=== PATIENT | female | born 1940 | race Caucasian/White ===

== ENCOUNTER → 2022-08-02 15:31 | Outpatient (REF) | payer MEDICARE, OTHER, SELFPAY | LOC: HO.CARD 15:31 | PROVIDERS: PCP Internal Medicine; Visit Provider Internal Medicine | DX: I35.0 Nonrheumatic aortic (valve) stenosis (principal) | CPT/HCPCS: 93306 ==

== ENCOUNTER 2024-07-07 11:52 | Outpatient (REF) | payer SELFPAY ==
[2024-07-07 12:55] LABS: Anion Gap 14 (12-20); Blood Urea Nitrogen 10 mg/dL (9-16); Calcium 8.7 mg/dL (8.4-10.2); Carbon Dioxide 21 mmol/L (22-29); Chloride 95 mmol/L (96-108); Estimated Glomerular Filt Rate > 60; Glucose Random 92 mg/dL (60-115); Potassium 3.7 mmol/L (3.3-5.1); Sodium 126 mmol/L (135-145)
== END 2024-07-07 11:53 | disposition home or self-care (01) ==
LOC: HO.MMNH1L 11:52
PROVIDERS: Visit Provider Hospitalist
DX: I50.30 Unspecified diastolic (congestive) heart failure (principal); E87.1 Hypo-osmolality and hyponatremia
CPT/HCPCS: 36415; 80048

== ENCOUNTER 2024-07-12 06:19 | Outpatient (REF) | payer SELFPAY ==
[2024-07-12 06:10] LABS: MANUAL DIFF FLAG NO
[2024-07-12 06:58] LABS: Basophils Absolute Auto 0.1 X10*3/uL (0.0-0.2); Basophils Percent Auto 0.7 % (0-2); Eosinophils Absolute Auto 0.1 X10*3/uL (0.0-0.4); Eosinophils Percent Auto 1.8 % (0-4); Hematocrit 35.6 % (37.0-47.0); Hemoglobin 11.9 g/dl (12.0-16.0); Imm Gran Abs Auto 0.03 X10*3/uL (0.00-0.03); Imm Gran Pct Auto 0.4 % (0.0-0.4); Lymphocytes Absolute Auto 1.7 X10*3/uL (1.2-4.9); Lymphocytes Percent Auto 24.5 % (20-40); Mean Corpuscular HGB Conc 33.4 g/dl (31.0-35.0); Mean Corpuscular Hemoglobin 29.5 pg (27.0-33.0); Mean Corpuscular Volume 88.3 fL (80.0-98.0); Mean Platelet Volume 10.2 fL (9.4-12.3); Monocytes Absolute Auto 0.8 X10*3/uL (0.1-1.2); Monocytes Percent Auto 11.2 % (2-11); Neutrophils Absolute Auto 4.2 x10*3/uL (2.0-8.3); Neutrophils Percent Auto 61.4 % (45-73); Platelet Count 272 X10*3/uL (160-400); Red Blood Count 4.03 X10*6/uL (4.20-5.50); Red Cell Distribution Width 13.5 % (11.0-16.0); White Blood Count 6.8 X10*3/uL (4.8-10.8)
[2024-07-12 07:25] LABS: Anion Gap 14 (12-20); Blood Urea Nitrogen 7 mg/dL (9-16); Calcium 8.7 mg/dL (8.4-10.2); Carbon Dioxide 24 mmol/L (22-29); Chloride 104 mmol/L (96-108); Estimated Glomerular Filt Rate > 60; Glucose Random 77 mg/dL (60-115); Potassium 3.6 mmol/L (3.3-5.1); Sodium 138 mmol/L (135-145)
== END 2024-07-12 06:20 | disposition home or self-care (01) ==
LOC: HO.MMNH1L 06:19
PROVIDERS: Visit Provider Family Medicine
DX: I10 Essential (primary) hypertension (principal)
CPT/HCPCS: 36415; 80048; 85025

== ENCOUNTER 2024-07-16 16:19 | Emergency (ER) | payer MEDICARE, OTHER, SELFPAY ==
--- NOTE | ~2024-07-16 | XR_ITS ---
EXAMINATION: XR PELVIS CLINICAL INFORMATION: Fall COMPARISON: None available. TECHNIQUE: AP view of the pelvis. FINDINGS: Generalized demineralization/osteopenia limits bony detail. Bowel obscures some of the pelvic osseous structures. There is no definite disruption of the SI joints, hips or symphysis. No definite acute pelvic fracture. There are some degenerative changes. No large pelvic mass or collection. There are vascular calcifications. XR/XR pelvis 1-2V IMPRESSION: Limited detail. No convincing acute fracture or subluxation. If patient symptoms persist and remain undiagnosed repeat or additional studies may be indicated Electronically signed by: Carloz Christianson MD 07/16/2024 05:50 PM EDT
--- NOTE | ~2024-07-16 | CT_ITS ---
EXAMINATION: CT HEAD WITHOUT CONTRAST CLINICAL INFORMATION: Fall COMPARISON: None. TECHNIQUE: Multidetector CT examination of the head is performed without contrast. This CT examination was performed using dose optimization techniques as appropriate, variously including the following: *Automated exposure control *Adjustment of mA and/or kV according to patient size (this includes techniques or standardized protocols for targeted exams where dose is matched to indication/reason for exam; i.e. extremities or head) *Use of iterative reconstruction technique DLP: 793 mGy-cm FINDINGS: There is no evidence of a recent intracranial hemorrhage or extra-axial collection. The midline structures are nondisplaced. Fairly marked proportional prominence of the ventricles, cisterns and sulci There is no evidence of an intra-axial mass. There are no suspicious focal areas of abnormal brain attenuation. The jacques-white interface is within normal limits. There is no evidence of acute territorial infarct. Severe nonspecific white matter low attenuation with a focal chronic appearing lacunae adjacent to the body of the right lateral ventricle. No fracture demonstrated CT/CT head/brain wo IV con IMPRESSION: 1. There is no evidence of a recent intracranial hemorrhage. 2. No acute infarct. 3. 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
[2024-07-16 16:31] VITALS: BP 133/66; PULSE 84; RESP 16; TEMP 36.9; O2SAT 96; BMI 26.6
--- NOTE | 2024-07-16 16:49 | ECG_ITS ---
Test Reason : FALL Blood Pressure : / mmHG Vent. Rate : 120 BPM Atrial Rate : 000 BPM P-R Int : 000 ms QRS Dur : 086 ms QT Int : 358 ms P-R-T Axes : 000 -17 043 degrees QTc Int : 505 ms Atrial fibrillation with rapid ventricular response Inferior infarct , age undetermined Cannot rule out Anterior infarct , age undetermined Abnormal ECG No previous ECGs available Referred By: Jesús Chahal Electronically Signed By:HARJIT ESPARZA
[2024-07-16 17:43] LABS: MANUAL DIFF FLAG NO
[2024-07-16 17:46] LABS: Basophils Percent Auto 0.5 % (0-2); Eosinophils Percent Auto 0.4 % (0-4); Hematocrit 37.3 % (37.0-47.0); Hemoglobin 12.9 g/dl (12.0-16.0); Imm Gran Abs Auto 0.04 X10*3/uL (0.00-0.03); Imm Gran Pct Auto 0.5 % (0.0-0.4); Lymphocytes Percent Auto 13.4 % (20-40); Mean Corpuscular HGB Conc 34.6 g/dl (31.0-35.0); Mean Corpuscular Hemoglobin 29.9 pg (27.0-33.0); Mean Corpuscular Volume 86.5 fL (80.0-98.0); Mean Platelet Volume 9.6 fL (9.4-12.3); Monocytes Absolute Auto 0.7 X10*3/uL (0.1-1.2); Monocytes Percent Auto 8.7 % (2-11); Neutrophils Absolute Auto 5.9 x10*3/uL (2.0-8.3); Neutrophils Percent Auto 76.5 % (45-73); Platelet Count 257 X10*3/uL (160-400); Red Blood Count 4.31 X10*6/uL (4.20-5.50); Red Cell Distribution Width 13.2 % (11.0-16.0); White Blood Count 7.7 X10*3/uL (4.8-10.8)
[2024-07-16 18:01] LABS: Alanine Aminotransferase 8 U/L (0-31); Albumin Level 3.8 g/dL (3.5-5.0); Alkaline Phosphatase 139 U/L (39-117); Anion Gap 13 (12-20); Aspartate Amino Transferase 12 U/L (5-31); Bilirubin Total 0.9 mg/dL (0.0-1.0); Blood Urea Nitrogen 9 mg/dL (9-16); Calcium 9.3 mg/dL (8.4-10.2); Carbon Dioxide 23 mmol/L (22-29); Chloride 101 mmol/L (96-108); Creatinine Clr Calc Pharmacy 49.7; Estimated Glomerular Filt Rate > 60; Glucose Random 100 mg/dL (60-115); Lipase 17 U/L (8-78); Potassium 4.1 mmol/L (3.3-5.1); Sodium 133 mmol/L (135-145); Total Protein 6.7 g/dL (6.5-8.0)
--- NOTE | 2024-07-16 18:22 | PC.NURSE ---
patient continues to rest quietly in room w/ pure wick in place. hx stroke with left sided deficits, states that she can ambulate w/ one assist and walker at baseline however has been utilizing a wheelchair while at [facility]. patient states she adamantly does not like [facility] and discharged herself a bit too early . plan for PT/CM.
--- NOTE | 2024-07-16 18:32 | MHC.EDTECH ---
Patient given dinner
--- NOTE | 2024-07-16 18:40 | PC.NURSE ---
patient's hr found to be elevated 120-140's. IV established. after cardizem pt hr between 80's-90's.
[2024-07-16 18:44] VITALS: BP 137/67; PULSE 134; RESP 18; O2SAT 98
[2024-07-16 18:47] VITALS: BP 137/67; PULSE 147
[2024-07-16] MEDS: dilTIAZem HCL 50 MG/10 ML VIAL 20 MG IVPUSH (18:47)
--- NOTE | 2024-07-16 19:23 | PC.NURSE ---
Assumed care pf pt at 1900. PT alert and oriented and in no acute distress. PT finished dinner tray and is resting quietly at this time. VSS. urine sample collected and sent to lab. PT requested and provided warm blanket. Plan of care ongoing.
[2024-07-16 19:32] VITALS: BP 120/59; PULSE 79; RESP 19; TEMP 36.8; O2SAT 100
[2024-07-16 19:37] LABS: Appearance Urine Clear; Color Urine Yellow; Glucose Urine UA Negative (Negative); Leukocyte Esterase Urine Trace (Negative); Nitrite Urine Negative (Negative); Specific Gravity - Urine <= 1.005 (1.005-1.025); UMIC TRIGGER UACC YES; Urine Blood Negative (Negative); Urine Ketones Trace mg/dL (Negative); Urine Protein Negative (Neg-Trace)
--- NOTE | 2024-07-16 19:42 | ED.GENADULT ---
HPI - General Adult General Chief complaint: Fall Stated complaint: Fell out of wheelchair, on tinners Time Seen by Provider: 07/16/24 16:25 Source: patient, RN notes reviewed and old records reviewed Mode of arrival: EMS Limitations: no limitations History of Present Illness ED Provider: Tirso HPI narrative: 84-year-old female with past medical history significant for paroxysmal atrial fibrillation maintained on Eliquis, previous CVA maintained on clopidogrel, hypertension, hyperlipidemia presents for evaluation after a fall. Patient reports that she was at [facility] and discharged earlier today. She states that she did not like it there and was pushing to be released early. The patient feels as though she may have left rehab too early as she still endorses feeling weak. She was at a local hotel because her house is being treated for asbestos Patient states that while trying to transfer from the wheelchair she slid onto her buttocks. She was unable to get up without assistance She denies hitting her head or losing consciousness She has mild pain in my buttocks. ? No other complaints or concerns at this time Related Data Home Medications ?Medication ?Instructions ?Recorded ?Confirmed albuterol sulfate 90 mcg/actuation 2 puff inhalation Q6H PRN 07/17/24 07/17/24 aerosol inhaler (Ventolin HFA) Shortness of breath or wheezing amlodipine 5 mg tablet 5 mg PO DAILY 07/17/24 07/17/24 apixaban 5 mg tablet (Eliquis) 5 mg PO BID 07/17/24 07/17/24 clopidogrel 75 mg tablet 75 mg PO DAILY 07/17/24 07/17/24 desmopressin 0.2 mg tablet 0.2 mg PO BEDTIME 07/17/24 07/17/24 fluticasone fur. 200 mcg-umeclid 1 inh inhalation BEDTIME 07/17/24 07/17/24 62.5 mcg-vilant 25 mcg inhalat.powder (Trelegy Ellipta) furosemide 20 mg tablet 20 mg PO MOWEFR@0900 07/17/24 07/17/24 metoprolol succinate 100 mg 100 mg PO DAILY 07/17/24 07/17/24 tablet,extended release 24 hr ondansetron HCl 8 mg tablet 4 mg PO Q6H PRN nausea/vomiting 07/17/24 07/17/24 pantoprazole 40 mg tablet,delayed 40 mg PO DAILY@0630 07/17/24 07/17/24 release spironolactone 25 mg tablet 25 mg PO MOWEFR@0907/17/24 07/17/24 Previous Rx's ?Medication ?Instructions ?Recorded diltiazem HCl 30 mg tablet 30 mg PO TID 7 days #21 tabs 07/18/24 Allergies Allergy/AdvReac Type Severity Reaction Status Date / Time codeine AdvReac Vomiting Verified 07/16/24 16:37 Review of Systems Constitutional: Constitutional: Denies body ache(s), Denies chills, Denies fever(s), Reports frequent falls and Denies headache(s) Eyes: Eyes: Denies blurry vision ENT: Denies headache(s) and Denies sore throat Cardiovascular: Cardiovascular: Denies chest pain and Denies dyspnea Respiratory: Respiratory: Denies cough and Denies dyspnea Gastrointestinal: Gastrointestinal: Denies abdominal pain Musculoskeletal: Musculoskeletal: Denies back pain Integumentary/Breasts: Skin/Breast: Denies rash Neurologic: Reports frequent falls and Denies headache(s) Psychiatric: Psychiatric: Denies anxiety PMFSH Social History Social History Advance Directives: No Advance Directives Information Provided: No Do you have a plan to hurt others: No Plan Physical Exam ED Vital Signs: Vital Signs - 24 hr 07/17/24 15:07 07/17/24 15:10 07/17/24 16:59 Temperature Pulse Rate 120 H 120 H 120 H Respiratory Rate 20 Blood Pressure 104/57 L 104/57 L 104/57 L Pulse Oximetry 98 Oxygen Delivery Method Room Air 07/17/24 18:01 07/17/24 21:17 07/17/24 21:52 Temperature 98.5 F 98.3 F Pulse Rate 101 H 87 95 Respiratory Rate 16 17 Blood Pressure 107/70 98/66 98/65 Pulse Oximetry 99 99 Oxygen Delivery Method Room Air Room Air 07/18/24 02:02 07/18/24 06:01 07/18/24 08:13 Temperature 98.0 F 97.9 F Pulse Rate 103 H 94 84 Respiratory Rate 18 17 18 Blood Pressure 107/49 L 113/67 Pulse Oximetry 98 99 Oxygen Delivery Method Room Air Room Air 07/18/24 08:22 07/18/24 09:36 07/18/24 09:36 Temperature 97.9 F Pulse Rate 102 H 108 H Respiratory Rate 17 Blood Pressure 118/74 121/80 121/80 Pulse Oximetry 96 Oxygen Delivery Method Room Air 07/18/24 09:36 07/18/24 09:41 07/18/24 12:08 Temperature Pulse Rate 108 H 108 H 92 Respiratory Rate 16 17 Blood Pressure 121/80 121/80 98/34 L Pulse Oximetry 99 96 Oxygen Delivery Method Room Air Room Air 07/18/24 12:20 Temperature Pulse Rate 91 Respiratory Rate 13 Blood Pressure 121/61 Pulse Oximetry Oxygen Delivery Method BMI result Body Mass Index 26.6 Const General: healthy appearing, comfortable, no acute distress, alert and awake Nutritional Appearance: well nourished Orientation/consciousness: patient oriented x3 HENMT Head: Yes normocephalic and Yes atraumatic Eyes Eyelids: Yes eyelids normal Conjunctivae: conjunctivae normal Sclerae: sclerae normal Corneas: corneas normal Pupils: Equal, round and reactive pupils present EOM: EOMs intact bilaterally Neck Neck: Yes full ROM Resp Effort & Inspection: normal respiratory effort, able to speak in complete sentences, no audible wheezes and not labored Auscultation: clear to auscultation bilaterally Cardio Rate: tachycardic Rhythm: abnormal rhythm irregularly irregular GI Inspection: No distended Palpation (GI): Soft to palpation, not firm, nontender, no guarding and not rigid Skin General skin exam: elasticity normal Neuro General: patient oriented x3 Cranial nerves: Yes Equal, round and reactive pupils present and Yes Bilaterally intact EOM present Cognition (Neuro): normal cognition Extrem Other: Moving all extremities well without any obvious deformities Course Reevaluation(s) Reevaluation #1: Patient's workup largely unremarkable, she has no further episodes of rapid AFib, she will be a hold overnight to be evaluated by physical therapy in case management Time: 22:22 Reevaluation #2: Patient has gone into AFib with RVR with a rate ranging from 120s to high 130s. Associated weakness, palpitations. Plan- admission to hospital Time: 11:10 Reevaluation #3: Hospitalist not willing to take this admission at this time recommend Cardizem p.o. 30 mg t.i.d.. Will add this to meds. Time: 12:07 Additional Reevaluation(s): [facility] accepted to [facility], CM assisted w/ dispo I agree. I did discuss this case with my attending I explained to him we tried to admit patient yesterday for AFib with RVR, Cardizem was started and we have had good success with rate control. He recommends discharging patient with Cardizem 30 mg p.o. t.i.d. for rate control x1 week and she will have to follow up with Cardiology. Medications Administered Generic Name Dose Route Start Last Admin Trade Name Freyasmin PRN Reason Stop Dose Admin Amlodipine Besylate 5 mg 07/17/24 09:00 07/18/24 09:36 Amlodipine Besylate 5 Mg Tablet PO 5 mg DAILY LINDSEY Administration Protocol Apixaban 5 mg 07/17/24 09:00 07/18/24 09:35 Apixaban 5 Mg Tablet PO 5 mg BID LINDSEY Administration Cefuroxime Axetil 250 mg 07/16/24 21:00 07/18/24 09:36 Cefuroxime Axetil 250 Mg Tablet PO 07/21/24 09:01 250 mg BID LINDSEY Administration Clopidogrel Bisulfate 75 mg 07/17/24 09:00 07/18/24 09:35 Clopidogrel Bisulfate 75 Mg Tablet PO 75 mg DAILY LINDSEY Administration Desmopressin Acetate 0.2 mg 07/17/24 21:00 07/17/24 21:52 Desmopressin Acetate 0.2 Mg Tablet PO 0.2 mg BEDTIME LINDSEY Administration Diltiazem HCl 30 mg 07/17/24 15:00 07/18/24 09:36 Diltiazem Hcl 30 Mg Tablet PO 30 mg TID LINDSEY Administration Protocol Fluticasone/Umeclidinium/Vilanterol 1 puff 07/17/24 09:00 07/18/24 08:11 Fluticasone/Umeclidinium/Vilanterol 200/62.5/25 Blst.W.Dev INHALE 1 puff DAILY LINDSEY Administration Metoprolol Succinate 100 mg 07/17/24 09:00 07/18/24 09:36 Metoprolol Succinate Er 100 Mg Tab.Er.24h PO 100 mg DAILY LINDSEY Administration Protocol Pantoprazole Sodium 40 mg 07/18/24 06:30 07/18/24 06:21 Pantoprazole Sodium 20 Mg Tablet.Dr PO 40 mg DAILY@0630 LINDSEY Administration Discontinued Medications Generic Name Dose Route Start Last Admin Trade Name Freq PRN Reason Stop Dose Admin Diltiazem HCl 20 mg 07/16/24 18:30 07/16/24 18:47 Diltiazem Hcl 50 Mg/10 Ml Vial IVPUSH 07/16/24 18:31 20 mg STAT STA Administration Diltiazem HCl 10 mg 07/17/24 11:03 07/17/24 11:19 Diltiazem Hcl 50 Mg/10 Ml Vial IVPUSH 07/17/24 11:04 10 mg STAT STA Administration Melatonin 6 mg 07/17/24 22:23 07/17/24 22:51 Melatonin 3 Mg Tablet PO 07/17/24 22:24 6 mg ONCE ONE Administration Pantoprazole Sodium 40 mg 07/17/24 09:00 07/17/24 11:07 Pantoprazole Sodium 20 Mg Tablet. PO 40 mg DAILY LINDSEY Administration Medical Decision Making Medical Decision Making MDM Narrative: 84-year-old female past medical history as documented above presents for evaluation of weakness. She did have an episode of rapid AFib in the 140s, this was treated with 1 dose of Cardizem 20 mg IV and she was rate controlled in the 80s. Plan for basic labs, urinalysis, CT scan of the brain given the fall on Eliquis and Plavix. She is currently awake alert and oriented and appears well. She will likely require placement at additional rehab facility Differential Diagnosis Differential Diagnoses: The differential diagnosis associated with the presentation includes Failure to thrive Weakness Intracranial hemorrhage UTI Lab Data [facility] Lab Attestation statement: I reviewed the patient's lab results. No leukocytosis or anemia. Normal platelet count. Patient has mild hyponatremia to 133. No other significant electrolyte abnormalities. This may be related to Lasix use. 07/17/24 12:03 07/17/24 12:13 Labs: Lab Results 07/16/24 07/16/24 07/17/24 Range/Units 17:38 19:18 12:03 WBC 7.7 8.0 (4.8-10.8) X10*3/uL RBC 4.31 4.12 L (4.20-5.50) X10*6/uL Hgb 12.9 12.3 (12.0-16.0) g/dl Hct 37.3 36.7 L (37.0-47.0) % MCV 86.5 89.1 (80.0-98.0) fL MCH 29.9 29.9 (27.0-33.0) pg MCHC 34.6 33.5 (31.0-35.0) g/dl RDW 13.2 13.4 (11.0-16.0) % Plt Count 257 244 (160-400) X10*3/uL MPV 9.6 9.8 (9.4-12.3) fL Immature Gran % (Auto) 0.5 H 0.4 (0.0-0.4) % Neut % (Auto) 76.5 H 78.3 H (45-73) % Lymph % (Auto) 13.4 L 11.3 L (20-40) % [place] % (Auto) 8.7 8.7 (2-11) % Eos % (Auto) 0.4 0.6 (0-4) % Baso % (Auto) 0.5 0.7 (0-2) % Lymph # (Auto) 1.0 L 0.9 L (1.2-4.9) X10*3/uL [place] # (Auto) 0.7 0.7 (0.1-1.2) X10*3/uL Eos # (Auto) 0.0 0.1 (0.0-0.4) X10*3/uL Baso # (Auto) 0.0 0.1 (0.0-0.2) X10*3/uL Abs Immat Gran (auto) 0.04 H 0.03 (0.00-0.03) X10*3/uL Absolute Neuts (auto) 5.9 6.3 (2.0-8.3) x10*3/uL Absolute Nucleated RBC 0.000 0.000 (0.0-0.012) X10*3/uL Nucleated RBC % (auto) 0.0 0.0 (0.0-0.2) /100WBC Sodium 133 L (135-145) mmol/L Potassium 4.1 (3.3-5.1) mmol/L Chloride 101 (96-108) mmol/L Carbon Dioxide 23 (22-29) mmol/L Anion Gap 13 (12-20) BUN 9 (9-16) mg/dL Creatinine 0.81 (0.5-1.4) mg/dL Estim Creat Clear Calc 49.7 Estimated GFR > 60 Random Glucose 100 (60-115) mg/dL Calcium 9.3 D (8.4-10.2) mg/dL Total Bilirubin 0.9 (0.0-1.0) mg/dL AST 12 (5-31) U/L ALT 8 (0-31) U/L Alkaline Phosphatase 139 H (39-117) U/L Troponin I High Sens (<3.5-17.0) ng/L Total Protein 6.7 (6.5-8.0) g/dL Albumin 3.8 (3.5-5.0) g/dL Lipase 17 (8-78) U/L Urine Color Yellow Urine Appearance Clear Urine pH 6.0 (5.0-9.0) Ur Specific Home <= 1.005 (1.005-1.025) Urine Protein Negative (Neg-Trace) mg/dL Urine Glucose (UA) Negative (Negative) mg/dL Urine Ketones Trace (Negative) mg/dL Urine Blood Negative (Negative) Urine Nitrite Negative (Negative) Ur Leukocyte Esterase Trace H (Negative) Urine RBC 0-2 (0-2) /HPF Urine WBC 0-5 (0-5) /HPF Ur Squamous Epith Cells 0-2 (0-2) /HPF Urine Bacteria 4+ (None Seen) Hyaline Casts 0-2 (0-2) /LPF 07/17/24 Range/Units 12:13 WBC (4.8-10.8) X10*3/uL RBC (4.20-5.50) X10*6/uL Hgb (12.0-16.0) g/dl Hct (37.0-47.0) % MCV (80.0-98.0) fL MCH (27.0-33.0) pg MCHC (31.0-35.0) g/dl RDW (11.0-16.0) % Plt Count (160-400) X10*3/uL MPV (9.4-12.3) fL Immature Gran % (Auto) (0.0-0.4) % Neut % (Auto) (45-73) % Lymph % (Auto) (20-40) % [place] % (Auto) (2-11) % Eos % (Auto) (0-4) % Baso % (Auto) (0-2) % Lymph # (Auto) (1.2-4.9) X10*3/uL [place] # (Auto) (0.1-1.2) X10*3/uL Eos # (Auto) (0.0-0.4) X10*3/uL Baso # (Auto) (0.0-0.2) X10*3/uL Abs Immat Gran (auto) (0.00-0.03) X10*3/uL Absolute Neuts (auto) (2.0-8.3) x10*3/uL Absolute Nucleated RBC (0.0-0.012) X10*3/uL Nucleated RBC % (auto) (0.0-0.2) /100WBC Sodium 140 (135-145) mmol/L Potassium 4.0 (3.3-5.1) mmol/L Chloride 106 (96-108) mmol/L Carbon Dioxide 23 (22-29) mmol/L Anion Gap 15 (12-20) BUN 5 L (9-16) mg/dL Creatinine 0.65 (0.5-1.4) mg/dL Estim Creat Clear Calc 62.0 Estimated GFR > 60 Random Glucose 103 (60-115) mg/dL Calcium 8.9 (8.4-10.2) mg/dL Total Bilirubin 0.7 (0.0-1.0) mg/dL AST 13 (5-31) U/L ALT 9 (0-31) U/L Alkaline Phosphatase 137 H (39-117) U/L Troponin I High Sens < 2.7 (<3.5-17.0) ng/L Total Protein 6.6 (6.5-8.0) g/dL Albumin 3.7 (3.5-5.0) g/dL Lipase (8-78) U/L Urine Color Urine Appearance Urine pH (5.0-9.0) Ur Specific Home (1.005-1.025) Urine Protein (Neg-Trace) mg/dL Urine Glucose (UA) (Negative) mg/dL Urine Ketones (Negative) mg/dL Urine Blood (Negative) Urine Nitrite (Negative) Ur Leukocyte Esterase (Negative) Urine RBC (0-2) /HPF Urine WBC (0-5) /HPF Ur Squamous Epith Cells (0-2) /HPF Urine Bacteria (None Seen) Hyaline Casts (0-2) /LPF Independent Interpretation I performed an independent interpretation of an: EKG (AFib as high as 120 with rapid ventricular response.) Critical Care Time Critical Care Time Critical Care Time: Yes Total Critical Care Time: 35 Attestation: I attest to this time spent taking care of the patient, obtaining history, physical, reviewing labs, imaging, treatment of patients condition +/- specialist/hospitalist consult Discharge Plan Discharge Clinical Impression: Weakness, Atrial fibrillation Patient Disposition: Xfer SNF Transfer Details: [facility] Instructions: A-fib (Atrial Fibrillation) (ED) Additional Instructions: Take your medications as prescribed. If you were prescribed antibiotics today, it is important that you take your medication to their entirety, do not skip any doses, do not finish them early. Follow-up with your primary care provider this week. Return to the emergency department with new or worsening symptoms. Such as fevers, chills, chest pain, shortness of breath, nausea, vomiting, dizziness, headache, vision changes, lethargy In case of emergency call 911 You were started on a new medicine called Cardizem this medicine helps control your heart rate when you are in the emergency department was going fast multiple days in a row, after starting this medicine your heart rate normalized. We will give you a supply for 7 days you need to follow-up with [facility] to see what they would like to continue this medicine. Prescriptions: New diltiazem HCl 30 mg tablet 30 mg PO TID 7 Days Qty: 21 0RF No Action ondansetron HCl 8 mg tablet 4 mg PO Q6H PRN (Reason: nausea/vomiting) metoprolol succinate 100 mg tablet extended release 24 hr 100 mg PO DAILY desmopressin 0.2 mg tablet 0.2 mg PO BEDTIME amlodipine 5 mg tablet 5 mg PO DAILY pantoprazole 40 mg tablet,delayed release (DR/EC) 40 mg PO DAILY@0630 furosemide 20 mg tablet 20 mg PO MOWEFR@0900 Rx Instructions: One tablet every Friday, Friday , Friday Eliquis 5 mg tablet 5 mg PO BID Trelegy Ellipta 200-62.5-25 mcg blister with device 1 inh inhalation BEDTIME clopidogrel 75 mg tablet 75 mg PO DAILY spironolactone 25 mg tablet 25 mg PO MOWEFR@0900 Rx Instructions: 1 tablet daily every Friday, Friday, Friday albuterol sulfate [Ventolin HFA] 90 mcg/actuation Hfa Aerosol Inhaler 2 puff INHALATION Q6H PRN (Reason: Shortness of breath or wheezing ) Referrals: Sung Alicea MD [Primary Care Provider] - 2 days [facility] [Provider Group] - 1 day Print Language: Japanese
[2024-07-16 19:43] LABS: Bacteria Urine 4+ (None Seen); Hyaline Casts Urine 0-2 /LPF (0-2); RBC Urine 0-2 /HPF (0-2); Squamous Epithelial Cell Urine 0-2 /HPF (0-2); WBC Urine 0-5 /HPF (0-5)
[2024-07-16] MEDS: cefuroxime axetiL 250 MG TABLET PO (20:13)
[2024-07-16 23:28] VITALS: BP 124/62; PULSE 111; RESP 20; TEMP 36.4; O2SAT 97
[2024-07-17] VITALS (18 sets, daily range): BP systolic 98–143; BP diastolic 57–73; PULSE 82–134; RESP 13–20; TEMP 36.4–37.1; O2SAT 96–99
--- NOTE | 2024-07-17 02:33 | MHC.EDTECH ---
patient rang call abad stating she was wet and needed to be changed. patient bedding and gown changed and new purewick in place. patient into position of comfort and all needs met. patient has call abad within reach
[2024-07-17] MEDS: Clopidogrel Bisulfate 75 MG TABLET PO (09:22)
[2024-07-17] MEDS: amLODIPine Besylate 5 MG TABLET PO (09:22)
[2024-07-17] MEDS: Metoprolol Succinate ER 100 MG TAB.ER.24H PO (09:23)
[2024-07-17] MEDS: cefuroxime axetiL 250 MG TABLET PO ×2 (09:23→21:52)
[2024-07-17] MEDS: Apixaban 5 MG TABLET PO ×2 (09:24→21:52)
--- NOTE | 2024-07-17 09:33 | PC.NURSE ---
pt is alert and oriented, skin pwd, respirations even and unlabored, pt denies pain at this time, pt is currently in A-fib, pt has hx of a-fib but heart rate will range from 130's- to the 90's, pt medicated with her morning medications, but pt reports that she takes her protonix at home before breakfast, this rn called the pharmacy and they will change it for tomorrow to be given before breakfast. pt is currently awaiting physical therapy evaluation but this rn is not sure if maybe pt needs admission for the A-fib, speaking with Kayla about this case.
--- NOTE | 2024-07-17 09:36 | PHA.MEDREC ---
Addendum entered by Femi Hough RPh 07/17/24 10:48: checked by [facility] Original Note: Pharmacy Consult ? Medication Reconciliation Pharmacy has completed the medication reconciliation. Bam obregon.
--- NOTE | 2024-07-17 10:45 | PC.NURSE ---
pt moved over the hospital bed for extra comfort
--- NOTE | 2024-07-17 11:05 | ECG_ITS ---
Test Reason : RAPID HR Blood Pressure : / mmHG Vent. Rate : 109 BPM Atrial Rate : 000 BPM P-R Int : 000 ms QRS Dur : 084 ms QT Int : 362 ms P-R-T Axes : 000 -15 035 degrees QTc Int : 487 ms Atrial fibrillation with rapid ventricular response with premature ventricular or aberrantly conducted complexes Inferior infarct (cited on or before 16-JUL-2024) Anterior infarct (cited on or before 16-JUL-2024) Abnormal ECG When compared with ECG of 16-JUL-2024 17:11, No significant change was found Referred By: Blanka Millan Electronically Signed By:HARJIT ESPARZA
[2024-07-17] MEDS: Pantoprazole Sodium 20 MG TABLET.DR 40 MG PO (11:07)
[2024-07-17] MEDS: dilTIAZem HCL 50 MG/10 ML VIAL 10 MG IVPUSH (11:19)
[2024-07-17 12:07] LABS: MANUAL DIFF FLAG NO
[2024-07-17 12:08] LABS: Basophils Absolute Auto 0.1 X10*3/uL (0.0-0.2); Basophils Percent Auto 0.7 % (0-2); Eosinophils Absolute Auto 0.1 X10*3/uL (0.0-0.4); Eosinophils Percent Auto 0.6 % (0-4); Hematocrit 36.7 % (37.0-47.0); Hemoglobin 12.3 g/dl (12.0-16.0); Imm Gran Abs Auto 0.03 X10*3/uL (0.00-0.03); Imm Gran Pct Auto 0.4 % (0.0-0.4); Lymphocytes Absolute Auto 0.9 X10*3/uL (1.2-4.9); Lymphocytes Percent Auto 11.3 % (20-40); Mean Corpuscular HGB Conc 33.5 g/dl (31.0-35.0); Mean Corpuscular Hemoglobin 29.9 pg (27.0-33.0); Mean Corpuscular Volume 89.1 fL (80.0-98.0); Mean Platelet Volume 9.8 fL (9.4-12.3); Monocytes Absolute Auto 0.7 X10*3/uL (0.1-1.2); Monocytes Percent Auto 8.7 % (2-11); Neutrophils Absolute Auto 6.3 x10*3/uL (2.0-8.3); Neutrophils Percent Auto 78.3 % (45-73); Platelet Count 244 X10*3/uL (160-400); Red Blood Count 4.12 X10*6/uL (4.20-5.50); Red Cell Distribution Width 13.4 % (11.0-16.0)
[2024-07-17 12:36] LABS: Alanine Aminotransferase 9 U/L (0-31); Albumin Level 3.7 g/dL (3.5-5.0); Alkaline Phosphatase 137 U/L (39-117); Anion Gap 15 (12-20); Aspartate Amino Transferase 13 U/L (5-31); Bilirubin Total 0.7 mg/dL (0.0-1.0); Blood Urea Nitrogen 5 mg/dL (9-16); Calcium 8.9 mg/dL (8.4-10.2); Carbon Dioxide 23 mmol/L (22-29); Chloride 106 mmol/L (96-108); Estimated Glomerular Filt Rate > 60; Glucose Random 103 mg/dL (60-115); Sodium 140 mmol/L (135-145); Total Protein 6.6 g/dL (6.5-8.0)
[2024-07-17 12:42] LABS: Troponin-I High Sensitivity < 2.7 ng/L (<3.5-17.0)
[2024-07-17] MEDS: dilTIAZem HCL 30 MG TABLET PO ×2 (15:10→21:52)
[2024-07-17] MEDS: Desmopressin Acetate 0.2 MG TABLET PO (21:52)
[2024-07-17] MEDS: Melatonin 3 MG TABLET 6 MG PO (22:51)
[2024-07-18] VITALS (13 sets, daily range): BP systolic 94–121; BP diastolic 34–80; PULSE 84–108; RESP 13–18; TEMP 36.6–36.7; O2SAT 96–99
[2024-07-18] MEDS: Pantoprazole Sodium 20 MG TABLET.DR 40 MG PO (06:21)
--- NOTE | 2024-07-18 06:56 | PC.NURSE ---
report given to Alethea SLADE
[2024-07-18] MEDS: Fluticasone/Umeclidinium/Vilanterol 200/62.5/25 BLST.W.DEV 1 PUFF INHALE (08:11)
[2024-07-18] MEDS: Apixaban 5 MG TABLET PO (09:35)
[2024-07-18] MEDS: Clopidogrel Bisulfate 75 MG TABLET PO (09:35)
[2024-07-18] MEDS: amLODIPine Besylate 5 MG TABLET PO (09:36)
[2024-07-18] MEDS: Metoprolol Succinate ER 100 MG TAB.ER.24H PO (09:36)
[2024-07-18] MEDS: cefuroxime axetiL 250 MG TABLET PO (09:36)
[2024-07-18] MEDS: dilTIAZem HCL 30 MG TABLET PO (09:36)
--- NOTE | 2024-07-18 12:40 | MHC.CM.PN ---
Addendum entered by Antionette Perdomo RN 07/18/24 12:43: PT AND BOTH CONFIRM THEY DO NOT HAVE FUNDS TO PRIVATE PAY FOR STR. Original Note: CM MET W/PT AND AT BEDSIDE, THEY ARE AWARE CM HAS NOT RECEIVED ANY BED OFFERS OF TIME OF THIS NOTE, THEY ARE ALSO AWARE A SNF MAY NOT OFFER D/T PREVIOUS STAY WAS 6 WKS AND PT ONLY DISCHARGED HOME FOR A FEW HRS HOWEVER PT UNABLE TO STAND/TRANSFER SELF SAFELY, SNF REFERRAL EXPANDED, CM WILL CONT TO FOLLOW.
--- NOTE | 2024-07-18 13:49 | PC.NURSE ---
1220: IV dressing taken down d/t noted blood. Skin cleanse and patency checked with NS flush; access is patent, intact, and asymptomatic. New dry clean dsg applied and dated.
--- NOTE | 2024-07-18 16:11 | MHC.CM.PN ---
PT DISCHARGING TO [facility] FOR [facility] AT 5PM VIA [facility] FOR BLS TRANSPORT. PT ALSO EDUCATED ON AND HAS COMPLETED A NEW HCP DOES NOT HAVE A COPY, ONLY A MOLST, PT NAMED HER PRIYANKA SHARMA HER [facility] AND HER OLDEST DTR ALISHA ELENA [phone] HER ALTERNATE, COPY UPLOADED TO [facility] AND PLACED IN CHART.
--- NOTE | 2024-07-18 17:40 | PC.NURSE ---
Call placed to [facility] for RN to RN report. Spoke with [address]ANY [address] and report given. Alma Rosa given the opportunity for questions and all questions answered to satisfaction. Care of Pt relinquished to [facility].
== END 2024-07-18 17:43 | disposition skilled nursing facility (03) ==
PROVIDERS: Physician Assistant; Emergency Provider Emergency Medicine; PCP Internal Medicine
DX: S39.92XA Unspecified injury of lower back, initial encounter (principal); R53.1 Weakness; I48.91 Unspecified atrial fibrillation; R26.2 Difficulty in walking, not elsewhere classified; R51.9 Headache, unspecified; R10.2 Pelvic and perineal pain; I10 Essential (primary) hypertension; W05.0XXA Fall from non-moving wheelchair, initial encounter; Y93.89 Activity, other specified; Y92.89 Other specified places as the place of occurrence of the external cause; Y99.8 Other external cause status; Z79.01 Long term (current) use of anticoagulants; Z86.73 Personal history of transient ischemic attack (TIA), and cerebral infarction without residual deficits; Z79.899 Other long term (current) drug therapy
CPT/HCPCS: 36415; 70450; 72170; 80053; 81001; 83690; 84484; 85025; 93005; 94640; 96374; 96376; 97162; 99285

== ENCOUNTER 2024-10-22 18:00 | Outpatient (REF) | payer MEDICARE, OTHER, SELFPAY ==
[2024-10-22 18:22] LABS: Appearance Urine Cloudy; Color Urine Yellow; Glucose Urine UA Negative (Negative); Leukocyte Esterase Urine Large (3+) (Negative); Nitrite Urine Positive (Negative); PH 6.5 (5.0-9.0); Specific Gravity - Urine 1.015 (1.005-1.025); UMIC TRIGGER UA YES; Urine Blood Negative (Negative); Urine Ketones Negative (Negative); Urine Protein Negative (Neg-Trace)
[2024-10-22 18:44] LABS: Bacteria Urine 4+ (None Seen); Hyaline Casts Urine 0-2 /LPF (0-2); RBC Urine 0-2 /HPF (0-2)
== END 2024-10-22 18:01 | disposition home or self-care (01) ==
LOC: HO.MANLNP 18:00
PROVIDERS: Visit Provider Internal Medicine
DX: N39.0 Urinary tract infection, site not specified (principal)
CPT/HCPCS: 81001